=== PATIENT | male | born 1960 | race Caucasian/White ===

== ENCOUNTER 2018-04-14 08:03 | Inpatient (IN) | payer SELFPAY ==
[~2018-04-14] VITALS: Ht 185.4 cm; Wt 87.8 kg
[2018-04-14] VITALS (42 sets, daily range): BP systolic 125–180; BP diastolic 77–119
[2018-04-14] MEDS ORDERED: HEPARIN SODIUM (PORCINE) 5000 UNITS/ML 1ML VIAL ONE ×2 (08:08→10:23)
[2018-04-14] MEDS ORDERED: NITROGLYCERIN 0.4 MG SL TAB SL ONE ×2 (08:08→08:15)
[2018-04-14] MEDS ORDERED: LABETALOL HCL 5 MG/ML ML 20ML VIAL IV ONE ×2 (08:09→08:15)
[2018-04-14] MEDS ORDERED: SODIUM CHLORIDE 0.9% 1,000 ML IV ONE (08:12)
[2018-04-14] MEDS ORDERED: HEPARIN SODIUM (PORCINE) 5000 UNITS/ML 1ML VIAL IV ONE (08:15)
[2018-04-14] MEDS ORDERED: cloNIDine HCL 0.1 MG TAB ONE (08:44)
[2018-04-14] MEDS ORDERED: ONDANSETRON HCL 4 MG/2 ML VIAL IV ONE (08:45)
[2018-04-14] MEDS ORDERED: MORPHINE SULFATE 4 MG/ML SYR/VIAL IV ONE (08:45)
[2018-04-14] MEDS ORDERED: cloNIDine 0.2 mg/24hr 7DAY PATCH TD ONE (09:00)
[2018-04-14] MEDS ORDERED: NICOTINE 14 MG/24HR TOPICAL PATCH TD ONE (09:00)
[2018-04-14] MEDS ORDERED: LIDOCAINE 2% (LOCAL ANESTH.) PF 5ml SDV ONE (09:01)
[2018-04-14] MEDS ORDERED: IODIXANOL 320MG/ML 100ML BTL IV ONE ×2 (09:01→09:30)
[2018-04-14] MEDS ORDERED: DEXTROSE 50% SYRINGE 50 ML IV ONE (09:14)
[2018-04-14] MEDS ORDERED: fentaNYL CITRATE 100 MCG/2 ML VL ONE (09:21)
[2018-04-14] MEDS ORDERED: ANGIOMAX 250 MG VIAL IV ONE (09:21)
[2018-04-14] MEDS ORDERED: MIDAZOLAM HCL 1MG/1ML-2 ML VIAL ONE ×2 (09:22→10:30)
[2018-04-14] MEDS ORDERED: SODIUM CHL 0.9% 50 ML ONE ×2 (09:22→10:23)
[2018-04-14] MEDS ORDERED: NICARDIPINE 25MG/250ML BAG KIT 250 ML IV ONE (09:34)
[2018-04-14] MEDS: NICARDIPINE 25MG/250ML BAG KIT 250 ML IV SCH ×3 (09:45→19:45)
[2018-04-14 09:47] LABS: Basophils # (auto) 0.1 uL; Eosinophils # (auto) 0.1 uL; Eosinophils % (auto) 1.2 % (0.0-7.0); Hematocrit 49.4 % (41.0-53.0); Hemoglobin 16.6 g/dL (13.5-17.5); Lymphocytes # (auto) 1.3 uL; Lymphocytes % (auto) 14.4 % (10.0-50.0); Mean Corpuscular Hgb Conc. 33.6 g/dL (32.0-36.0); Mean Corpuscular Volume 83.4 fL (80.0-100.0); Monocytes % (auto) 10.7 % (0.0-12.0); Neutrophils # (auto) 6.6 uL; Neutrophils % (auto) 72.7 % (37.0-80.0); Nucleated Red Blood Cells % 0.3 %; Platelet Count (auto) 192 10^3/uL (140-450); Red Blood Cells 5.93 10^6/uL (4.5-5.90); Red Cell Distribution Width 14.8 % (11.8-14.3)
[2018-04-14] MEDS ORDERED: ADENOSINE 6 MG/2 ML INJ IV ONE (10:02)
[2018-04-14 10:06] LABS: INR 1.04 (0.9-1.15); Prothrombin Time 11.1 sec (9.27-12.13)
[2018-04-14 10:15] LABS: Albumin 3.2 g/dL (3.4-5.0); BUN/Creatinine Ratio 14.3; Calcium 8.1 mg/dL (8.5-10.1); Potassium 3.9 mmol/L (3.5-5.1)
[2018-04-14 10:21] LABS: Bilirubin, Total 0.8 mg/dL (0.2-1.0); Total Protein 8.3 g/dL (6.4-8.2)
[2018-04-14] MEDS ORDERED: ADENOSINE 90 MG/30 ML INJ IV ONE (10:22)
[2018-04-14] MEDS ORDERED: NITROGLYCERIN 0.4MG/DOSE SPRAY 4.9GM ONE (10:26)
[2018-04-14] MEDS ORDERED: NITROGLYCERIN 50MG/250ML 250 ML IV ONE (10:36)
[2018-04-14] MEDS ORDERED: ONDANSETRON HCL 4 MG/2 ML VIAL ONE (11:00)
[2018-04-14] MEDS ORDERED: MORPHINE SULFATE 4 MG/ML SYR/VIAL IV PRN (11:00)
[2018-04-14] MEDS ORDERED: NITROGLYCERIN 0.4 MG SL TAB SL PRN (11:00)
[2018-04-14] MEDS ORDERED: ACETAMINOPHEN 500 MG TAB PO PRN (11:00)
[2018-04-14] MEDS ORDERED: DEXTROSE (50%) 50ML SYRG IV PRN (11:00)
[2018-04-14] MEDS: InsuLIN REG 1unit/0.01ml Soln (100units/ml) SC SCH ×3 (11:35→22:17)
[2018-04-14] MEDS: ACCU-CHEK COMFORT CURVE STRIP VI SCH ×3 (11:35→22:17)
[2018-04-14] MEDS ORDERED: amLODIPine BESYLATE 5 MG TAB PO ONE (12:00)
[2018-04-14] MEDS ORDERED: METOPROLOL SUCCINATE XL 50 MG TAB PO ONE (12:00)
[2018-04-14] MEDS: NITROGLYCERIN 50MG/250ML 250 ML IV SCH (15:40)
[2018-04-14] MEDS: SODIUM CHLOR 0.9% PF (SALINE LOCK) 10ML VIAL/SYR IV SCH ×2 (15:42→22:17)
[2018-04-14] MEDS: HYDROcodone-ACET 5/325MG TAB PO PRN ×2 (17:45→22:25)
[2018-04-15] VITALS (57 sets, daily range): BP systolic 122–179; BP diastolic 34–103
[2018-04-15] MEDS: NITROGLYCERIN 50MG/250ML 250 ML IV SCH (01:13)
[2018-04-15] MEDS: NICARDIPINE 25MG/250ML BAG KIT 250 ML IV SCH ×3 (05:45→10:45)
[2018-04-15] MEDS: SODIUM CHLOR 0.9% PF (SALINE LOCK) 10ML VIAL/SYR IV SCH ×3 (06:00→21:27)
[2018-04-15] MEDS: InsuLIN REG 1unit/0.01ml Soln (100units/ml) SC SCH ×4 (06:41→21:28)
[2018-04-15] MEDS: ACCU-CHEK COMFORT CURVE STRIP VI SCH ×4 (06:41→21:28)
[2018-04-15] MEDS: amLODIPine BESYLATE 5 MG TAB PO SCH (09:25)
[2018-04-15] MEDS ORDERED: METOPROLOL SUCCINATE XL 50 MG TAB PO SCH (10:00)
[2018-04-15 11:22] LABS: Urine Bacteria NONE SEEN /hpf (None Seen); Urine Blood Negative /uL (Negative); Urine Specific Gravity 1.026 (1.001-1.035); Urine WBC 1 /hpf (0 - 3)
[2018-04-15] MEDS ORDERED: NICOTINE 14 MG/24HR TOPICAL PATCH TD ONE (11:45)
[2018-04-15] MEDS ORDERED: cloNIDine HCL 0.1 MG TAB PO ONE (12:45)
[2018-04-15] MEDS ORDERED: METOPROLOL SUCCINATE XL 50 MG TAB PO ONE (12:45)
[2018-04-15] MEDS: ASPirin-EC 81 mg tab PO SCH (15:01)
[2018-04-15] MEDS: cloNIDine HCL 0.1 MG TAB PO SCH (21:28)
[2018-04-16 04:50] LABS: Basophils # (auto) 0 uL; Basophils % (auto) 0.2 % (0.0-2.0); Eosinophils # (auto) 0.1 uL; Eosinophils % (auto) 1.3 % (0.0-7.0); Hematocrit 48.7 % (41.0-53.0); Hemoglobin 16.5 g/dL (13.5-17.5); Lymphocytes # (auto) 1.5 uL; Lymphocytes % (auto) 20.1 % (10.0-50.0); Mean Corpuscular Hemoglobin 28.2 pg (28.0-32.0); Mean Corpuscular Hgb Conc. 33.9 g/dL (32.0-36.0); Mean Corpuscular Volume 83.3 fL (80.0-100.0); Monocytes % (auto) 12.7 % (0.0-12.0); Neutrophils % (auto) 65.7 % (37.0-80.0); Nucleated Red Blood Cells % 0.2 %; Platelet Count (auto) 185 10^3/uL (140-450); Red Blood Cells 5.84 10^6/uL (4.5-5.90); Red Cell Distribution Width 15.1 % (11.8-14.3); White Blood Cell 7.5 10^3/uL (4.4-10.8)
[2018-04-16 05:00] VITALS: BP 115/79
[2018-04-16 05:15] LABS: Albumin 2.9 g/dL (3.4-5.0); Calcium 8.7 mg/dL (8.5-10.1); Magnesium 2.1 mg/dL (1.6-2.6)
[2018-04-16 05:18] LABS: BUN/Creatinine Ratio 17.9; Bilirubin, Total 1.3 mg/dL (0.2-1.0); Total Protein 7.8 g/dL (6.4-8.2)
[2018-04-16] MEDS: SODIUM CHLOR 0.9% PF (SALINE LOCK) 10ML VIAL/SYR IV SCH (06:02)
[2018-04-16] MEDS: ACCU-CHEK COMFORT CURVE STRIP VI SCH ×2 (06:20→11:30)
[2018-04-16] MEDS: InsuLIN REG 1unit/0.01ml Soln (100units/ml) SC SCH ×2 (06:20→11:30)
[2018-04-16 09:15] VITALS: BP 126/78
[2018-04-16] MEDS: cloNIDine HCL 0.1 MG TAB PO SCH (09:34)
[2018-04-16] MEDS: ASPirin-EC 81 mg tab PO SCH (09:34)
[2018-04-16] MEDS: amLODIPine BESYLATE 5 MG TAB PO SCH (09:35)
[2018-04-16] MEDS ORDERED: NICOTINE 14 MG/24HR TOPICAL PATCH TD SCH (10:00)
[2018-04-16] MEDS ORDERED: METOPROLOL SUCCINATE XL 50 MG TAB PO SCH (10:00)
[2018-04-16] MEDS ORDERED: CLO01T PO (10:02)
[2018-04-16] MEDS ORDERED: NICO14DI9 TD (10:02)
[2018-04-16] MEDS ORDERED: ATOR10TA52 PO (10:02)
[2018-04-16] MEDS ORDERED: AML5T PO (10:02)
[2018-04-16] MEDS ORDERED: MET5XLT PO (10:02)
[2018-04-16] MEDS ORDERED: ASP81EC PO (10:02)
[2018-04-16] MEDS ORDERED: METF-370 PO (10:02)
[2018-04-16 12:00] VITALS: BP 115/71
== END 2018-04-16 12:40 | disposition home or self-care (01) | DRG 281 ==
LOC: ER 08:03 → CATH 09:19 → ICU WEST 09:20 → TELE-WESTW 04-15 21:21
PROVIDERS: ADMIT Internal Medicine Cardiovascular Disease; ATTEND Internal Medicine
PROC: 4A023N7 Measurement of Cardiac Sampling and Pressure, Left Heart, Percutaneous Approach (ICD-10-PCS; principal; 2018-04-14)
PROC: B2111ZZ Fluoroscopy of Multiple Coronary Arteries using Low Osmolar Contrast (ICD-10-PCS; 2018-04-14)
PROC: B2151ZZ Fluoroscopy of Left Heart using Low Osmolar Contrast (ICD-10-PCS; 2018-04-14)
PROC: 4A033BC Measurement of Arterial Pressure, Coronary, Percutaneous Approach (ICD-10-PCS; 2018-04-14)
DX: I21.09 ST elevation (STEMI) myocardial infarction involving other coronary artery of anterior wall (principal); E44.1 Mild protein-calorie malnutrition; I16.1 Hypertensive emergency; I25.110 Atherosclerotic heart disease of native coronary artery with unstable angina pectoris; E11.65 Type 2 diabetes mellitus with hyperglycemia; I70.0 Atherosclerosis of aorta; I08.0 Rheumatic disorders of both mitral and aortic valves; E78.5 Hyperlipidemia, unspecified; F17.210 Nicotine dependence, cigarettes, uncomplicated; I11.9 Hypertensive heart disease without heart failure; Z68.25 Body mass index [BMI] 25.0-25.9, adult; Z86.73 Personal history of transient ischemic attack (TIA), and cerebral infarction without residual deficits; Z91.14 Patient's other noncompliance with medication regimen; Z79.84 Long term (current) use of oral hypoglycemic drugs
CPT/HCPCS: 36415; 71045; 80053; 80061; 81001; 82962; 83036; 83735; 83880; 84443; 84484; 85025; 85379; 85610; 85730; 87081; 93005; 93306; 93458; 93571; 99152; A6257; C1887; J0153; J1815; J2001; J2250; J2405; Q9967